=== PATIENT | female | born 1985 | race Caucasian/White ===

== ENCOUNTER 2016-11-14 16:45 | Inpatient (IN) | payer OTHER ==
[~2016-11-14] VITALS: Ht 160 cm; Wt 67.1 kg
[2016-11-14 17:19] LABS: HEMOGLOBIN 13.6 gm/dl (12.3-15.3); RED BLOOD COUNT 4.49 M/UL (4.00-5.10); WHITE BLOOD COUNT 9.4 K/UL (4.5-11.0)
[2016-11-16 03:05] LABS: HEMOGLOBIN 11.7 gm/dl (12.3-15.3)
== END 2016-11-17 16:25 | disposition home or self-care (01) | DRG 774 ==
LOC: GENOP 16:45 → OB 16:57
PROVIDERS: Obstetrics & Gynecology; ADMIT Obstetrics & Gynecology
PROC: 10E0XZZ Delivery of Products of Conception, External Approach (ICD-10-PCS; principal; 2016-11-15)
PROC: 0HQ9XZZ Repair Perineum Skin, External Approach (ICD-10-PCS; principal; 2016-11-15)
PROC: 10907ZC Drainage of Amniotic Fluid, Therapeutic from Products of Conception, Via Natural or Artificial Opening (ICD-10-PCS; 2016-11-15)
PROC: 3E033VJ Introduction of Other Hormone into Peripheral Vein, Percutaneous Approach (ICD-10-PCS; 2016-11-15)
DX: O26.62 Liver and biliary tract disorders in childbirth (principal); O98.42 Viral hepatitis complicating childbirth; K83.1 Obstruction of bile duct; F11.20 Opioid dependence, uncomplicated; B19.20 Unspecified viral hepatitis C without hepatic coma; Z3A.38 38 weeks gestation of pregnancy; Z37.0 Single live birth; Z79.899 Other long term (current) drug therapy; O70.0 First degree perineal laceration during delivery
CPT/HCPCS: 36415; 51702; 80307; 81001; 82800; 85014; 85018; 85025; 85461; 86850; 86900; 86901; 90715; J2590; J2790; J2795; J3010; J7120